=== PATIENT | male | born 1960 | race Hispanic/Latino ===

== ENCOUNTER 2018-05-19 06:04 | Day surgery (SDC) | payer MEDICARE, OTHER ==
[2018-05-14 09:54] VITALS: BMI 26.6
--- NOTE | 2018-05-16 23:09 | HP ---
DATE OF EXAM: 05/16/2018 REASON FOR ADMISSION: Left heart catheterization, possible angioplasty, unstable angina. BRIEF CLINICAL HISTORY: This is a 57-year-old male with past medical history significant for nonobstructive coronary artery disease, cardiac catheterization in the past, who was complaining recently of dyspnea on exertion, chest pain on exertion, half a block of walking gets short of breath and is climbing half a flight and gets very short winded with chest pressure. PAST MEDICAL HISTORY: Significant for hypertension and hyperlipidemia. SOCIAL HISTORY: Ex-alcohol abuse, quit many years ago. Denies any history of alcohol or tobacco abuse recently. CURRENT MEDICATIONS: Patient is taking omeprazole 40 mg daily, vitamin D 50,000 units, atorvastatin 20 mg daily, atenolol 25 mg daily, and baby aspirin 81 mg daily. REVIEW OF SYSTEMS: As per HPI. RECENT CARDIAC WORKUP: As follows; patient had an echocardiography on 03/23/2018 that showed ejection fraction 50%, [id number] MR, [id number] tricuspid regurgitation, RV systolic pressure 19. Patient had a stress test dated 03/23/2018, that shows probably normal myocardial perfusion study, ejection fraction 48%, but patient complained of chest pain. PHYSICAL EXAMINATION VITAL SIGNS: Height of the patient 5 feet 7 inches, weight of the patient 170 pounds, body mass index 26.6 kg/m2. Rest of the vitals, temperature afebrile, heart rate 70, blood pressure 110/70. HEENT: PERRLA. Extraocular muscles intact. NECK: Supple. No carotid bruits or thyromegaly. CHEST: Clear to auscultation. HEART: S1, S2 regular. ABDOMEN: Soft. EXTREMITIES: Clubbing, cyanosis negative. LABORATORY DATA: Blood workup is pending. IMPRESSION AND PLAN: A 57-year-old male with past medical history significant for hypertension, hyperlipidemia, history of ex-alcohol abuse, history of cardiac catheterization in 2013. He was recently having dyspnea on exertion, chest pain on exertion, mild mitral regurgitation, mild tricuspid regurgitation. Stress test done in 03/2018 showed no reversible ischemia, but patient developed dyspnea on exertion and chest pain on exertion. The daughter is an associate technician and who saw the patient that patient after walking half a block gets very short winded and chest pain and holds his chest with chest pain. So, patient has new onset of angina, unstable angina. Risk, benefits, and alternatives were discussed with patient. Patient agreed to proceed with cardiac catheterization. Further recommendations after the cardiac catheterization. We will follow with you. Thank you Dr. Taveras for providing us the opportunity in taking care of patient, Nathaniel King. Gregoria Trujillo MD
[2018-05-19 07:05] LABS: BASO # 0.01 K/mm3 (0.0-2.0); BASO % 0.2 % (0.0-3.0); EOS # 0.1 (0.0-0.7); EOS % 1.3 % (1.5-5.0); HEMOGLOBIN 13.4 g/dL (14.0-18.0); LYMPH # 3.9 (1.2-3.4); LYMPH % 62.6 % (22.0-35.0); MEAN CELL VOLUME 95.1 fl (80.0-105.0); MEAN CORPUSCULAR HGB CONC 32.6 g/dl (31.0-37.0); MONO # 0.2 (0.1-0.6); MONO % 3.4 % (1.0-6.0); RBC 4.32 10^6/uL (3.5-6.1); RED CELL DISTRIBUTION WIDTH 12.6 % (11.5-14.5); WHITE BLOOD COUNT 6.2 10^3/uL (4.5-11.0)
[2018-05-19 07:15] LABS: BLOOD UREA NITROGEN 18 mg/dL (7-21); CALCIUM 9.2 mg/dL (8.4-10.5); GFR NON-AFRICAN AMERICAN > 60; HDL CHOLESTEROL 44 mg/dL (29-60); INR 1.11; PARTIAL THROMBOPLASTIN TIME 31.7 Seconds (26.9-38.3); PROTHROMBIN TIME 12.5 SECONDS (9.4-12.5)
[2018-05-19] MEDS ORDERED: Lidocaine PF 2% (5 ml) Inj (For Cardiac Arrhy) ONE (07:21)
[2018-05-19] MEDS ORDERED: Verapamil 2 ML ONE (07:21)
[2018-05-19] MEDS ORDERED: Iodixanol 320 MG/ML 200 ML BOTTLE IV ONE (07:22)
[2018-05-19] MEDS ORDERED: Iohexol 350mgl/ml 50 ML ONE (07:22)
[2018-05-19 07:24] VITALS: RESP 18
[2018-05-19 07:26] LABS: LDL CHOLESTEROL 68 mg/dL (0-129)
[2018-05-19] MEDS ORDERED: Midazolam 2 MG/2 ML VIAL ONE ×2 (07:45→08:04)
[2018-05-19] MEDS ORDERED: Bacitracin 500 Units/gm Oint Foilpak UD TOP ONE (08:26)
[2018-05-19] MEDS ORDERED: Sodium Chloride 0.9% 1,000 ML IV SCH (08:30)
[2018-05-19 08:48] VITALS: TEMP 97.8
--- NOTE | 2018-05-19 09:04 | CPOSTOP ---
DATE: 05/19/2018 CARDIOVASCULAR POSTPROCEDURE NOTE PHYSICIAN: Gregoria Trujillo MD PROGRAM SCHEDULER: CASI Bacon. TYPE OF ANESTHESIA: Moderate conscious sedation, total 2 mg of Versed and 100 mg of fentanyl given. PRE-PROCEDURE DIAGNOSES: Unstable angina, abnormal stress test. PROCEDURE PERFORMED: Left heart catheterization. FINDINGS: Nonobstructive coronary artery disease, limited only to diagonal 1. FINAL DIAGNOSIS: Nonobstructive coronary artery disease. POST-PROCEDURE CONDITION: The patient's condition is stable. VASCULAR ACCESS SITE: Left radial. CLOSURE DEVICE: TR Band. TOTAL RADIATION DOSE: 3735.32 milligray unit. FLUOROSCOPY TIME: 2.3 minutes. Gregoria Trujillo MD
[2018-05-19 10:25] VITALS: O2SAT 97
--- NOTE | 2018-05-19 10:37 | CARD ---
APPROVED REPORT Date of service: 05/19/2018 EKG Measurement Heart [id number] <Conclusion> Normal sinus rhythm Normal ECG
[2018-05-19] MEDS ORDERED: Bacitracin 500 Units/gm Oint Foilpak UD ONE (10:56)
[2018-05-19 11:09] VITALS: BP 145/81; PULSE 74
--- NOTE | 2018-05-19 20:21 | CARD ---
APPROVED REPORT Date of service: 05/19/2018 Procedure(s) performed: Left Heart Catheterization HISTORY The patient is a 57 year-old male with a history of : previous AK (> 7 days), most recent EF: 48%. (EF Method: RADIONUCLIDE), previous CVA , previous diagnostic cath, hypertension , dyslipidemia , cerebrovascular disease , c/o recurrent chest pain and LEVI and had an abnormal stress test.. INDICATION The indication(s) include : positive stress test. CASE TECHNIQUE The patient was brought electively to the Cardiac Catheterization Laboratory in a fasting state and was prepped and draped in a sterile manner. The left wrist was infiltrated with 2% Lidocaine subcutaneous anesthesia. A sheath was inserted into the left radial artery without difficulty. Coronary angiography was performed using coronary diagnostic catheters. The left coronary system was accessed and visualized with a Diagnostic ,5F JL 4 CATH DXT 100 CM catheter. The right coronary system was accessed and visualized with a Diagnostic , 5F JR 4 CATH DXT 100 CM catheter. The left ventricle was accessed and visualized with a 5F PIGTAIL 145 CATH DXT 110 CM catheter. Left ventricular/Aortic Valve gradient assessed on pullback. Left ventriculogram was performed in MANNING projection. Closure device was deployed with a Fr TR Band (Regular) without any complications. The patient tolerated the procedure well and there were no complications associated with the procedure. Vessel Analysis The patient's coronary anatomy is right dominant. The left main coronary artery is a medium size vessel with intimal irregularities and without significant stenosis. The left main bifurcates to the left anterior descending and circumflex. The left anterior descending artery is a medium size vessel with intimal irregularities and without significant stenosis. The first diagonal branch is a medium size vessel with intimal irregularities and without significant stenosis. There is a 50-55% stenosis in the ostial segment. The circumflex artery is a medium size vessel with intimal irregularities and without significant stenosis. The right coronary artery is a large size vessel with intimal irregularities and without significant stenosis. The right posterior descending artery is a large size vessel with intimal irregularities and without significant stenosis. The right posterolateral branch is a large size vessel with intimal irregularities and without significant stenosis. Left Ventricle The left ventricle is normal in size with normal contractility. There was no cardiomyopathy. The left ventricular ejection fraction is estimated to be 60-65%. The left ventricular end diastolic pressure is 14 mmHg. There was no gradient across the aortic valve upon pullback. Conclusion Non Obstructive CAD limited to D1 50-55%, non flow limiting stenosis. Preserved LV Fx, EF-60-65%, EDP-14 mmof Hg Recommendations Smoking Cessation Aggressive Medical TherapyCardiac Risk Reduction Program Weight Loss Reduction Program Complete Abstinence of ETOH abuse. W/u for non cardiac chest poain and SOB. Cc; Dr. Taveras
== END 2018-05-19 12:15 | disposition home or self-care (01) ==
LOC: CATH 06:04
PROVIDERS: ATTEND Internal Medicine Cardiovascular Disease
DX: I25.110 Atherosclerotic heart disease of native coronary artery with unstable angina pectoris (principal); R94.39 Abnormal result of other cardiovascular function study; E78.5 Hyperlipidemia, unspecified; I10 Essential (primary) hypertension; I25.2 Old myocardial infarction; Z86.73 Personal history of transient ischemic attack (TIA), and cerebral infarction without residual deficits; I08.1 Rheumatic disorders of both mitral and tricuspid valves
CPT/HCPCS: 36415; 80048; 80061; 85025; 85610; 85730; 86850; 86900; 93005; 93458; 99152; C1769; J1644 ×2; J2250; J3010; J7030; Q9966; Q9967